=== PATIENT | male | born 1960 | race Caucasian/White ===

== ENCOUNTER → 2025-07-10 07:32 | Outpatient (REF) | payer OTHER, SELFPAY | LOC: HWRAD 07:32 | PROVIDERS: ATTENDING PHYSICIAN Family Medicine | DX: Z13.6 Encounter for screening for cardiovascular disorders (principal); Z87.891 Personal history of nicotine dependence | CPT/HCPCS: 76770 ==

== ENCOUNTER → 2025-10-26 07:12 | Outpatient (REF) | payer OTHER, SELFPAY | LOC: RAD 07:12 | PROVIDERS: ATTENDING PHYSICIAN Chiropractor; FAMILY PHYSICIAN Family Medicine | DX: M99.01 Segmental and somatic dysfunction of cervical region (principal); M99.03 Segmental and somatic dysfunction of lumbar region | CPT/HCPCS: 72050; 72110 ==